=== PATIENT | male | born 1975 ===

== ENCOUNTER 2017-08-12 02:44 | Emergency (ER) | payer SELFPAY ==
[2017-08-12 02:50] VITALS: PULSE 65; TEMP 98.9
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
[2017-08-12 04:36] VITALS: BP 127/61; RESP 14; O2SAT 100
--- NOTE | 2017-08-12 09:20 | RAD ---
PROCEDURE: CHEST RADIOGRAPH, 1 VIEW HISTORY: dyspnea COMPARISON: None available. FINDINGS: LUNGS: Clear. PLEURA: No pneumothorax or pleural fluid seen. CARDIOVASCULAR: Normal. OSSEOUS STRUCTURES: No significant abnormalities. VISUALIZED UPPER ABDOMEN: Normal. OTHER FINDINGS: None. IMPRESSION: No active disease.
--- NOTE | 2017-08-12 18:04 | CARD ---
APPROVED REPORT EKG Measurement Heart [id number] <Conclusion> Normal Sinus Rhtyhm Early repolarization Abnormal ECG
== END 2017-08-12 04:34 ==
LOC: H.ER 02:44
DX: J45.909 Unspecified asthma, uncomplicated; R07.89 Other chest pain; I10 Essential (primary) hypertension

== ENCOUNTER 2017-11-23 13:28 | Emergency (ER) | payer OTHER ==
[2017-11-23 13:28] VITALS: BMI 34.8
[2017-11-23 14:01] VITALS: BP 111/72; PULSE 78; RESP 16; TEMP 97.5; O2SAT 98
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
== END 2017-11-23 16:31 | disposition home or self-care (01) ==
LOC: H.ER 13:28
DX: G89.11 Acute pain due to trauma (principal); G47.33 Obstructive sleep apnea (adult) (pediatric); I10 Essential (primary) hypertension; J45.909 Unspecified asthma, uncomplicated; Z87.891 Personal history of nicotine dependence